=== PATIENT | female | born 1940 | race Caucasian/White ===

== ENCOUNTER 2021-01-26 23:46 | Emergency (ER) | payer MEDICARE, MEDICAID ==
[2021-01-27] MEDS ORDERED: Sodium Chloride 0.9% 500 ML IV ONE (00:19)
--- NOTE | 2021-01-27 01:15 | EDM.PDOC ---
ED HPI GENERAL MEDICAL PROBLEM - General Chief Complaint: Syncope Stated Complaint: MED[facility] Time Seen by Provider: 01/27/21 00:02 Source of Information: Reports: Patient, EMS History Limitations: Reports: Other (hearing impairment despite bilateral hearing aids) - History of Present Illness INITIAL COMMENTS - FREE TEXT/NARRATIVE: Arrived via EMS EMS secondary to syncopal episode that occurred today at her daughter's house she apparently per EMS report was washing dishes when suddenly passed out in the kitchen floor. Patient is a poor historian secondary to hearing impairment that makes it difficult to communicate she states that she had somewhat of an upset stomach today and has had "the scoots" when I asked her if she was having diarrhea stools she said no but she did have a diarrhea episode that was cleaned up here in the emergency room. Patient states that she was dizzy today but otherwise she has no specific complaints now in the emergency room. Her daughter is in the room at the bedside but she is equally a poor historian. Patient states that she lives in [place] at a assisted living facility and she was up here in [place] today to help her daughter out. PMH/Meds--EMR (medication bottles reviewed in bag patient brought with her to ER) NKDA Onset: Today - Related Data Allergies Allergy/AdvReac Type Severity Reaction Status Date / Time No Known Allergies Allergy Verified 01/27/21 00:37 Home Meds: Home Meds Ashwagandha Root Extract 300 mg PO ASDIRECTED 01/27/21 [History] Cholecalciferol (Vitamin D3) [Vitamin D3] 5,000 unit PO DAILY 01/27/21 [History] Cider Vinegar [Apple Cider Vinegar] 500 mg PO DAILY 01/27/21 [History] Cinnamon Bark [Cinnamon] 500 mg PO ASDIRECTED 01/27/21 [History] Pantoprazole 20 mg PO DAILY 01/27/21 [History] Simvastatin [Zocor] 20 mg PO DAILY 01/27/21 [History] bisacodyL [Bisacodyl] 5 mg PO ASDIRECTED 01/27/21 [History] lisinopriL [Lisinopril] 10 mg PO DAILY 01/27/21 [History] Past Medical History HEENT History: Reports: Cataract, Impaired Vision Cardiovascular History: Reports: High Cholesterol, Hypertension KNOTTER History: Reports: Musculoskeletal History: Reports: Arthritis, Fracture - Past Surgical History HEENT Surgical History: Reports: Cataract Surgery GI Surgical History: Reports: Cholecystectomy Musculoskeletal Surgical History: Reports: Other (See Below) Other Musculoskeletal Surgeries/Procedures:: finger surgery "wire in it". Social & Family History - Tobacco Use Tobacco Use Status *Q: Never Tobacco User - Caffeine Use Caffeine Use: Reports: None - Recreational Drug Use Recreational Drug Use: No ED ROS GENERAL - Review of Systems Review Of Systems: Unable To Obtain Reason Not Obtained: limited HPI/ROS as noted due to hearing impairment Constitutional: Reports: No Symptoms HEENT: Reports: No Symptoms Respiratory: Reports: No Symptoms Cardiovascular: Reports: No Symptoms GI/Abdominal: Reports: Abdominal Pain, Diarrhea : Reports: No Symptoms Musculoskeletal: Reports: No Symptoms Skin: Reports: No Symptoms Neurological: Reports: Dizziness Psychiatric: Reports: No Symptoms Hematologic/Lymphatic: Reports: No Symptoms Immunologic: Reports: No Symptoms ED EXAM, GENERAL - Physical Exam Exam: See Below Exam Limited By: No Limitations General Appearance: Alert, WD/WN, No Apparent Distress, Other (frail elderly appearing female in NAD, pleasant but unable to hear much of what I ask even when yelling into her ear which has noted hearing aid in place) Eye Exam: Bilateral Eye: EOMI, Normal Inspection, PERRL Ears: Normal External Exam Nose: Normal Inspection Throat/Mouth: Normal Inspection, Normal Oropharynx, Normal Voice, No Airway Compromise Head: Atraumatic, Normocephalic Neck: Normal Inspection, Supple, Non-Tender, Full Range of Motion Respiratory/Chest: No Respiratory Distress, Lungs Clear, Normal Breath Sounds, Chest Non-Tender Cardiovascular: Normal Peripheral Pulses, Regular Rate, Rhythm, No Edema, No Murmur Peripheral Pulses: 2+: Radial (L), Radial (R) GI/Abdominal: Normal Bowel Sounds, Soft, Non-Tender, No Distention. No: Guarding, Rigid, Rebound (Female) Exam: Deferred Rectal (Female) Exam: Deferred Back Exam: Full Range of Motion, Other (mild thoracic kyphosis; able to sit up in bed without any assistance or reported symptoms of dizzy/lightheadedness) Extremities: Normal Inspection, Normal Range of Motion, No Pedal Edema, Normal Capillary Refill Neurological: Alert, Oriented, CN II-XII Intact, Normal Cognition, No Motor/Sensory Deficits Psychiatric: Normal Affect, Normal Mood Skin Exam: Warm, Dry, Intact, Normal Color #1 Interpretation EKG Date: 01/27/21 Time: 00:51 (read by physician at 0102) Rhythm: NSR Rate (Beats/Min): 72 [place]: Normal P-Wave: Present (WI-162) QRS: LBBB (QRS-145) ST-T: Normal QT: Normal (QT/QTc-357/391) EKG Interpretation Comments: sinus rhythm, atrial premature complexes, L-BBB; no STEMI Course - Vital Signs Text/Narrative:: 0120--patient has received NS bolus, no symptoms noted on exam or while in the ER today. labs/EKG unremarkable. at this time will d/c with precautions, increase fluids/stay well hydrated, avoid strenuous activity and follow up with your family doctor next week. verbalized understanding/agreement with plan of care Last Recorded V/S: Last Vital Signs Temp 97.1 F 01/27/21 00:34 Pulse 70 01/27/21 00:34 Resp 16 01/27/21 00:34 BP 122/55 L 01/27/21 00:34 Pulse Ox 100 01/27/21 00:34 - Orders/Labs/Meds Orders: Active Orders 24 hr Category Date Time Status EKG Documentation Completion [RC] ASDIRECTED Care 01/27/21 00:20 Active Sodium Chloride 0.9% [Normal Saline] 500 ml Med 01/27/21 00:19 Active IV .BOLUS EKG 12 Lead [EK] Routine Ther 01/27/21 00:19 Ordered Medication Orders Sodium Chloride (Normal Saline) 500 mls @ 500 mls/hr IV .BOLUS ONE Stop: 01/27/21 01:18 Last Admin: 01/27/21 00:15 Dose: 500 mls/hr Documented by: YONIS Labs: Laboratory Tests 01/27/21 01/27/21 Range/Units 00:30 00:30 WBC 10.5 (4.5-11.0) K/uL RBC 4.19 (3.30-5.50) M/uL Hgb 13.2 (12.0-15.0) g/dL Hct 38.9 (36.0-48.0) % MCV 93 (80-98) fL MCH 32 H (27-31) pg MCHC 34 (32-36) % Plt Count 225 (150-400) K/uL Neut % (Auto) 86.4 H (36-66) % Lymph % (Auto) 5.0 L (24-44) % [place] % (Auto) 7.7 H (2-6) % Eos % (Auto) 0.8 L (2-4) % Baso % (Auto) 0.1 (0-1) % Sodium 143 (140-148) mmol/L Potassium 3.9 (3.6-5.2) mmol/L Chloride 108 (100-108) mmol/L Carbon Dioxide 23 (21-32) mmol/L Anion Gap 12.1 (5.0-14.0) mmol/L BUN 12 (7-18) mg/dL Creatinine 1.1 H (0.6-1.0) mg/dL Est Cr Clr Drug Dosing TNP Estimated GFR (MDRD) 48 L (>60) Glucose 123 H (74-106) mg/dL Calcium 9.8 (8.5-10.1) mg/dL Troponin I < 0.017 (0.000-0.056) ng/mL labs noted for mild increase WBC-10.5 with neut% elevation-86. creat-1.1 mildly elevated with mild decrease in GFR-48. trop is negative Meds: Medications Generic Name Dose Route Start Last Admin Trade Name Deysi PRN Reason Stop Dose Admin Sodium Chloride 500 mls @ 500 mls/hr 01/27/21 00:19 01/27/21 00:15 Normal Saline IV 01/27/21 01:18 500 mls/hr .BOLUS ONE Administration Departure - Departure Time of Disposition: 01:19 Disposition: Home, Self-Care 01 Clinical Impression: Syncope, Mild dehydration - Discharge Information *PRESCRIPTION DRUG MONITORING PROGRAM REVIEWED*: Not Applicable *COPY OF PRESCRIPTION DRUG MONITORING REPORT IN PATIENT SKYLER: Not Applicable Instructions: Dehydration, Adult, [id number], Syncope, [id number] Referrals: PCP,None [Primary Care Provider] - Additional Instructions: Ensure you are drinking plenty of fluids--water, juice, sports drinks of choice to stay well hydrated Avoid strenuous activity the next several days If you have any return of symptoms of concern then return to the ER for further evaluation Follow up with your family doctor next week regarding today's ER visit Sepsis Event Note (ED) - Evaluation Sepsis Screening Result: No Definite Risk - Focused Exam Vital Signs: Vital Signs Temp Pulse Resp BP Pulse Ox 01/27/21 00:34 97.1 F 70 16 122/55 L 100 - My Orders Last 24 Hours: My Active Orders 01/27/21 00:19 Sodium Chloride 0.9% [Normal Saline] 500 ml IV .BOLUS EKG 12 Lead [EK] Routine 01/27/21 00:20 EKG Documentation Completion [RC] ASDIRECTED - Assessment/Plan Last 24 Hours: My Active Orders 01/27/21 00:19 Sodium Chloride 0.9% [Normal Saline] 500 ml IV .BOLUS EKG 12 Lead [EK] Routine 01/27/21 00:20 EKG Documentation Completion [RC] ASDIRECTED
== END 2021-01-27 01:33 | disposition home or self-care (01) ==
LOC: JP.ED 23:46
DX: E86.0 Dehydration (principal); R55 Syncope and collapse; I44.7 Left bundle-branch block, unspecified; I10 Essential (primary) hypertension; E78.00 Pure hypercholesterolemia, unspecified; Z79.899 Other long term (current) drug therapy
CPT/HCPCS: 36415; 80048; 84484; 85025; 93005; 99284; J7040

== ENCOUNTER 2025-06-11 10:18 | Emergency (ER) | payer MEDICARE, MEDICAID ==
[2025-06-11 10:47] LABS: BASOPHILS ABSOLUTE AUTO 0.03 K/uL (0.00-0.10); BASOPHILS PERCENT AUTO 0.4 % (0.1-1.3); EOSINOPHILS ABSOLUTE AUTO 0.19 K/uL (0.00-0.40); EOSINOPHILS PERCENT AUTO 2.7 % (0.0-5.4); IMMATURE GRAN PERCENT AUTO 0.3 % (0.0-0.7); LYMPHOCYTES ABSOLUTE AUTO 0.94 K/uL (0.8-3.3); LYMPHOCYTES PERCENT AUTO 13.3 % (11.4-47.7); MONOCYTES ABSOLUTE AUTO 0.26 K/uL (0.20-0.90); MONOCYTES PERCENT AUTO 3.7 % (3.3-12.6); NEUTROPHILS ABSOLUTE AUTO 5.61 K/uL (1.0-7.6); NEUTROPHILS PERCENT AUTO 79.6 % (40.0-78.1); PLATELET COUNT,PLT 234 K/uL (130-375); RED BLOOD CELL COUNT 3.75 M/uL (3.77-5.24); WHITE BLOOD CELL COUNT,WBC 7.1 K/uL (3.2-11.0)
[2025-06-11 10:48] LABS: IMMATURE GRAN ABSOLUTE AUTO 0.02 K/uL (0.00-0.23)
[2025-06-11 11:11] LABS: LACTIC ACID 2.3 mmol/L (0.4-2.0)
[2025-06-11 11:18] LABS: A/G RATIO 0.9 (1.2-2.2); ALANINE AMINOTRANSFERASE,ALT 28 U/L (12-78); ASPARTATE AMNIOTRANSFERASE,AST 19 U/L (15-37); BILIRUBIN TOTAL 0.3 mg/dL (0.2-1.0); BLOOD UREA NITROGEN,BUN 23 mg/dL (7-18); CARBON DIOXIDE,CO2 22 mmol/L (21-32); CHLORIDE,CL 108 mmol/L (100-108); CREATININE 1.1 mg/dL (0.6-1.0); EST CRCL DRUG DOSING (CG) 32.29 mL/min; ESTIMATED GFR 49 mL/min (>60); GLUCOSE RANDOM 164 mg/dL (74-106); POTASSIUM,K 4.6 mmol/L (3.6-5.2); PROTEIN TOTAL,TP 6.4 g/dL (6.4-8.2); SODIUM,NA 141 mmol/L (140-148); TROPONIN I HIGH SENSITIVITY 19.2 pg/mL (<=60.3)
[2025-06-11] MEDS: Aluminum Hydroxide/Magnesium Hydroxide/Simethicone Susp 30 ML Cup PO PRN (11:50)
[2025-06-11] MEDS: Ondansetron 4 MG Tab.DIS PO ONE (11:51)
[2025-06-11 14:00] LABS: LACTIC ACID 2.0 mmol/L (0.4-2.0)
[2025-06-11 14:04] LABS: APPEARANCE,URINE CLEAR (CLEAR); GLUCOSE,URINE NEGATIVE (NEGATIVE); OCCULT BLOOD,URINE NEGATIVE (NEGATIVE)
[2025-06-11 14:37] LABS: CORONAVIRUS COVID-19 NAA NEGATIVE (NEGATIVE); INFLUENZA A NAA NEGATIVE (NEGATIVE); INFLUENZA B NAA NEGATIVE (NEGATIVE); RESPIRATORY SYNCYTIAL VIR NAA NEGATIVE (NEGATIVE)
== END 2025-06-11 15:50 | disposition home or self-care (01) ==
LOC: JP.ED 10:18
DX: E86.0 Dehydration (principal); I10 Essential (primary) hypertension; E78.00 Pure hypercholesterolemia, unspecified; Z79.899 Other long term (current) drug therapy; Z79.82 Long term (current) use of aspirin; Z95.5 Presence of coronary angioplasty implant and graft; Z90.49 Acquired absence of other specified parts of digestive tract
CPT/HCPCS: 36415; 71046; 71046-26; 80053; 81003; 83605; 84484; 85025; 87040; 87637; 93005; 96360; 99285-25; A9270-GY; J7030; Q0162